=== PATIENT | female | born 1990 | race American Indian/Alaskan Native ===

== ENCOUNTER 2016-09-11 04:50 | Outpatient (CLI) | payer OTHER, MEDICAID ==
[2016-09-11 05:18] VITALS: BP 140/75
== END 2016-09-11 05:40 | disposition home or self-care (01) ==
LOC: TRG 04:50
PROVIDERS: ATTEND Obstetrics & Gynecology
DX: O47.1 False labor at or after 37 completed weeks of gestation (principal); Z3A.37 37 weeks gestation of pregnancy

== ENCOUNTER 2019-01-18 17:28 | Outpatient (CLI) | payer MEDICAID, OTHER ==
[2019-01-18 18:16] VITALS: BP 121/71
[2019-01-18] MEDS ORDERED: LACTATED RINGERS 1,000 ML ONE (18:18)
[2019-01-18] MEDS ORDERED: ONDANSETRON 4 MG/2 ML INJ IV ONE (19:16)
[2019-01-18] MEDS ORDERED: LACTATED RINGERS 1,000 ML IV ONE (19:17)
== END 2019-01-18 19:13 | disposition home or self-care (01) ==
LOC: TRG 17:28
PROVIDERS: ATTEND Obstetrics & Gynecology
DX: O21.2 Late vomiting of pregnancy (principal); O47.02 False labor before 37 completed weeks of gestation, second trimester; O13.2 Gestational [pregnancy-induced] hypertension without significant proteinuria, second trimester; Z3A.22 22 weeks gestation of pregnancy
CPT/HCPCS: 96365; J2405; J7120; 96360; 96374

== ENCOUNTER 2019-03-04 13:57 | Outpatient (CLI) | payer MEDICAID ==
[2019-03-04] MEDS ORDERED: LACTATED RINGERS 500 ML IV ONE (16:17)
[2019-03-04] MEDS ORDERED: ACETAMINOPHEN 325 MG TAB PO ONE (16:18)
[2019-03-04] MEDS ORDERED: LACTATED RINGERS 1,000 ML IV SCH (17:00)
--- NOTE | 2019-03-04 18:59 | XRay Report ---
CHEST 2 VIEWS INDICATION / CLINICAL INFORMATION: COUGHING. COMPARISON: None available. FINDINGS: SUPPORT DEVICES: None. HEART / MEDIASTINUM: No significant abnormality. LUNGS / PLEURA: No significant pulmonary or pleural abnormality. No pneumothorax. ADDITIONAL FINDINGS: No significant additional findings. IMPRESSION: 1. No acute findings. Signer Name: Junior Og MD Signed: 03/04/2019 6:55 PM Workstation Name: [id number]
[2019-03-04 19:05] LABS: Bacteria,Urine 2+ /HPF (Negative); Bilirubin,Urine NEG (Negative); Blood,Urine NEG (Negative); Color,Urine Amber (Yellow); Mucus,Urine 3+ /HPF; Sperm,Urine 1+ /HPF (NP)
[2019-03-04 19:15] LABS: Amphetamine Screen,Urine PRESUMPTIVE NEGATIVE; Benzodiazepines Screen,Urine PRESUMPTIVE NEGATIVE; Cocaine Screen,Urine PRESUMPTIVE NEGATIVE; Methadone Screen,Urine PRESUMPTIVE NEGATIVE; Opiate Screen,Urine PRESUMPTIVE NEGATIVE
[2019-03-04 19:18] VITALS: BP 121/74
[2019-03-04] MEDS ORDERED: ONDANSETRON 8 MG ODT TAB PO PRN (19:21)
[2019-03-04 19:59] LABS: Cannabinoid Screen,Urine PRESUMPTIVE POSITIVE
[2019-03-04] MEDS ORDERED: guaiFENesin 100 MG/5 ML ORAL LIQD PO PRN (20:20)
== END 2019-03-04 21:08 | disposition home or self-care (01) ==
LOC: TRG 13:57
PROVIDERS: ATTEND Obstetrics & Gynecology
DX: O47.03 False labor before 37 completed weeks of gestation, third trimester (principal); Z3A.28 28 weeks gestation of pregnancy
CPT/HCPCS: 71046; 80307; 81001; 87086; 87400; Q0162

== ENCOUNTER 2021-07-28 17:30 | Emergency (ER) | payer MEDICAID | END 2021-07-28 17:35 | disposition left against medical advice (07) | LOC: ED 17:30 | DX: J35.1 Hypertrophy of tonsils (principal); Z53.21 Procedure and treatment not carried out due to patient leaving prior to being seen by health care provider; R55 Syncope and collapse ==